=== PATIENT | male | born 1970 | race Caucasian/White ===

== ENCOUNTER 2017-07-21 05:39 | Emergency (ER) | payer OTHER ==
[~2017-07-21] VITALS: Ht 180.3 cm; Wt 106.6 kg
[~2017-07-21 05:39] MED LIST: ASPIR 8181 MG PO; BACTRIM DS TAB1 EACH PO; CELEXA10 MG PO; CEPHALEXIN 500500 M3 PO; CHANTIX1 MG PO; FLEXERIL PO; GABAPENTIN 100100 MG; HYDROCODONE-AP1 EAC6 PO; HYDROCODONE-APA1 TA1 PO; IBUPROFEN 600600 M1 PO; IBUPROFEN 800800 M1 PO; LIPITOR 20 MG T20 M1 PO; LISINOPRIL10 MG PO; NEURONTIN 300300 M1 PO; NORCO 5-325 TA1 EACH PO; NORTRIPTYLINE H10 M1 PO; OXYCODONE-APAP1 EAC4; PERCOCET 10-321 EACH PO; PERCOCET 7.5-31 EACH PO; PERCOCET PO; PRISTIQ50 MG PO; ROBAXIN500 MG PO; ROXICODONE5 M2 PO; TYLENOL EXTRA500 MG PO
[2017-07-21] MEDS ORDERED: HYDROCODONE-AP1 EAC6 PO (05:56)
[2017-07-21 06:07] LABS: ABSOLUTE BASOPHILS 0.1 thou/uL (0.0-0.2); ABSOLUTE EOSINOPHILS 0.2 thou/uL (0.0-0.7); ABSOLUTE MONOCYTES 0.7 thou/uL (0.0-1.2); ABSOLUTE NEUTROPHILS 5.1 thou/uL (1.6-8.1); BASOPHILS 0.6 %; EOSINOPHILS 2.4 %; HEMATOCRIT 43.8 % (42.0-52.0); LYMPHOCYTES 33.5 %; MCH 30.9 pg (26.0-34.0); MCHC 34.1 g/dL (28.0-37.0); MCV 90.4 fL (80.0-100.0); MONOCYTES 7.4 %; MPV 6.9 fl. (7.2-11.1); NUCLEATED RBCS 0 /100WBC; PLATELET COUNT* 235 thou/uL (150-400); POLYS 56.1 %; RBC 4.85 mil/uL (4.50-6.00)
[2017-07-21 06:14] LABS: CREATININE 0.9 mg/dL (0.6-1.3); POTASSIUM 3.7 mmol/L (3.5-5.1)
[2017-07-21 06:19] LABS: ALBUMIN 4.1 g/dL (3.4-5.0); TOTAL BILIRUBIN 0.4 mg/dL (<0.1-1.0); TOTAL PROTEIN 7.3 g/dL (6.4-8.2)
[2017-07-21] MEDS ORDERED: PERCOCET 5-3251 EACH PO (07:52)
[2017-07-21] MEDS ORDERED: ZOFRAN4 MG PO (07:52)
[2017-07-21 07:54] VITALS: BP 151/85
== END 2017-07-21 08:00 | disposition home or self-care (01) ==
LOC: M.ERS 05:39
PROVIDERS: Emergency Medicine Emergency Medical Services
DX: S70.01XA Contusion of right hip, initial encounter (principal); M25.511 Pain in right shoulder; F32.9 Major depressive disorder, single episode, unspecified; F17.210 Nicotine dependence, cigarettes, uncomplicated; Z86.73 Personal history of transient ischemic attack (TIA), and cerebral infarction without residual deficits; W18.39XA Other fall on same level, initial encounter; Y93.89 Activity, other specified; Y92.89 Other specified places as the place of occurrence of the external cause; Y99.8 Other external cause status

== ENCOUNTER 2018-03-10 06:02 | Emergency (ER) | payer OTHER ==
[~2018-03-10] VITALS: Ht 180.3 cm; Wt 103.4 kg
[~2018-03-10 06:02] MED LIST changes: +PERCOCET 5-3251 EACH PO; +ZOFRAN4 MG PO
[2018-03-10 06:32] LABS: ABSOLUTE BASOPHILS 0.1 thou/uL (0.0-0.2); ABSOLUTE EOSINOPHILS 0.3 thou/uL (0.0-0.7); ABSOLUTE LYMPHOCYTES 4.6 thou/uL (0.8-5.3); ABSOLUTE MONOCYTES 0.9 thou/uL (0.0-1.2); ABSOLUTE NEUTROPHILS 4.1 thou/uL (1.6-8.1); BASOPHILS 0.8 %; EOSINOPHILS 3.1 %; HEMATOCRIT 45.5 % (42.0-52.0); HEMOGLOBIN 15.6 gm/dL (14.0-18.0); LYMPHOCYTES 46.3 %; MCH 30.9 pg (26.0-34.0); MCHC 34.2 g/dL (28.0-37.0); MCV 90.2 fL (80.0-100.0); MONOCYTES 8.6 %; MPV 7.1 fl. (7.2-11.1); NUCLEATED RBCS 0 /100WBC; PLATELET COUNT* 250 thou/uL (150-400); POLYS 41.2 %; RBC 5.04 mil/uL (4.50-6.00); RDW-CV 13.3 % (10.5-14.5)
[2018-03-10 06:37] LABS: URINE BILIRUBIN NEGATIVE (Negative); URINE BLOOD TRACE (Negative); URINE CLARITY CLEAR; URINE COLOR YELLOW; URINE GLUCOSE-RANDOM NEGATIVE (Negative); URINE KETONES NEGATIVE (Negative); URINE LEUKOCYTES-REFLEX NEGATIVE (Negative); URINE NITRITE-REFLEX NEGATIVE (Negative); URINE PROTEIN TRACE (Negative); URINE SPECIFIC GRAVITY >= 1.030 (1.005-1.030)
[2018-03-10 06:38] LABS: ANION GAP 10 mmol/L (7-16); BUN 17 mg/dL (7-18); CALCIUM 8.4 mg/dL (8.5-10.1); CHLORIDE 104 mmol/L (98-107); CO2 25 mmol/L (21-32); CREATININE 1.1 mg/dL (0.6-1.3); GLUCOSE 130 mg/dL (70-99); POTASSIUM 3.6 mmol/L (3.5-5.1); SODIUM 139 mmol/L (136-145)
[2018-03-10 06:44] LABS: ALBUMIN 4.3 g/dL (3.4-5.0); ALKALINE PHOSPHATASE 76 U/L (46-116); LIPASE 186 U/L (73-393); SGOT 18 U/L (15-37); SGPT 29 U/L (30-65); TOTAL BILIRUBIN 0.5 mg/dL (<0.1-1.0); TOTAL PROTEIN 7.7 g/dL (6.4-8.2); TROPONIN-I LEVEL <0.06 ng/mL (<0.06)
[2018-03-10] MEDS ORDERED: BENTYL 20 MG TA20 M1 PO (10:46)
[2018-03-10] MEDS ORDERED: NORFLEX100 MG PO (10:46)
[2018-03-10 12:12] VITALS: BP 118/76
--- NOTE | 2018-03-11 12:51 | EKG ---
[place] [address] ELECTROCARDIOGRAM REPORT Name: NIRAJSURESH Canela Room: [facility]#: [id number] Admission: 03/10/18 Attend Phys: Discharge: 03/10/18 Date of : 66 Report #: [id number] THIS REPORT FOR: //name// [facility] ED Test Date: 2018-03-10 Test Time: 06:15:30 Pat Name: SURESH HEALY Department: Room: Gender: M Overhauler Helper: KATARZYNA : 1970 Requested By: Eliazar Pulliam Order Number: [id number] MD: Suresh Mcclellan Measurements Intervals [place] Rate: 111 P: 69 PA: 129 QRS: -6 QRSD: 135 T: 17 QT: 335 QTc: 455 Interpretive Statements Sinus tachycardia Nonspecific intraventricular conduction delay Artifact in lead(s) II,III,aVF,V3,V4,V5,V6 Electronically Signed On 03-11-2018 12:51:40 CDT by Suresh Mcclellan [email or web address] <ELECTRONICALLY SIGNED> By: Suresh Mcclellan MD, LOCATED WITHIN [facility] 03/11/18 1251 4 4 Suresh Mcclellan MD, FACC /EPI
[2018-03-11] MEDS ORDERED: ATIVAN1 MG PO (18:17)
== END 2018-03-10 12:13 | disposition home or self-care (01) ==
LOC: M.ERS 06:02
PROVIDERS: Family Medicine
DX: S30.1XXA Contusion of abdominal wall, initial encounter (principal); F32.9 Major depressive disorder, single episode, unspecified; F17.210 Nicotine dependence, cigarettes, uncomplicated; Z98.890 Other specified postprocedural states; Z90.5 Acquired absence of kidney; W22.8XXA Striking against or struck by other objects, initial encounter; Y93.89 Activity, other specified; Y92.89 Other specified places as the place of occurrence of the external cause; Y99.8 Other external cause status

== ENCOUNTER 2018-03-11 16:01 | Emergency (ER) | payer OTHER ==
[~2018-03-11] VITALS: Ht 180.3 cm; Wt 103.4 kg
[~2018-03-11 16:01] MED LIST changes: +BENTYL 20 MG TA20 M1 PO; +NORFLEX100 MG PO
[2018-03-11 16:22] LABS: ABSOLUTE BASOPHILS 0.1 thou/uL (0.0-0.2); ABSOLUTE EOSINOPHILS 0.1 thou/uL (0.0-0.7); ABSOLUTE LYMPHOCYTES 2.6 thou/uL (0.8-5.3); ABSOLUTE MONOCYTES 0.4 thou/uL (0.0-1.2); ABSOLUTE NEUTROPHILS 3.9 thou/uL (1.6-8.1); BASOPHILS 1.1 %; HEMATOCRIT 46.9 % (42.0-52.0); HEMOGLOBIN 15.8 gm/dL (14.0-18.0); LYMPHOCYTES 36.5 %; MCH 30.3 pg (26.0-34.0); MCHC 33.7 g/dL (28.0-37.0); MCV 89.9 fL (80.0-100.0); MONOCYTES 5.3 %; NUCLEATED RBCS 0 /100WBC; PLATELET COUNT* 228 thou/uL (150-400); POLYS 55.1 %; RBC 5.21 mil/uL (4.50-6.00); RDW-CV 13.7 % (10.5-14.5); WBC 7.1 thou/uL (4.0-11.0)
[2018-03-11 16:30] LABS: CALCIUM 8.6 mg/dL (8.5-10.1); CREATININE 0.9 mg/dL (0.6-1.3); POTASSIUM 4.2 mmol/L (3.5-5.1)
[2018-03-11 16:35] LABS: ALBUMIN 4.1 g/dL (3.4-5.0); TOTAL PROTEIN 7.6 g/dL (6.4-8.2)
[2018-03-11] MEDS ORDERED: ATIVAN1 MG PO (18:17)
[2018-03-11 18:29] VITALS: BP 131/72
--- NOTE | 2018-03-12 13:55 | EKG ---
[place] [address] ELECTROCARDIOGRAM REPORT Name: SURESH HEALY [place] Room: [facility]#: [id number] Admission: 03/11/18 Attend Phys: Discharge: 03/11/18 Date of : 66 Report #: [id number] THIS REPORT FOR: //name// [facility] ED Test Date: 2018-03-11 Test Time: 17:19:47 Pat Name: SURESH HEALY Department: Room: Gender: M Advertising Supervisor: DANIEL : 1970 Requested By: Sonia Caraballo Order Number: [id number] MD: Suresh Mcclellan Measurements Intervals [place] Rate: 83 P: 49 RI: 145 QRS: 1 QRSD: 92 T: 16 QT: 376 QTc: 442 Interpretive Statements Sinus rhythm Low voltage, precordial leads Compared to ECG 03/10/2018 06:15:30 Low QRS voltage now present Sinus tachycardia no longer present Intraventricular conduction delay no longer present Electronically Signed On 03-12-2018 13:55:13 CDT by Suresh Mcclellan [email or web address] <ELECTRONICALLY SIGNED> By: Suresh Mcclellan MD, [facility] 03/12/18 1355 1719 1719 Suresh Mcclellan MD, [facility] /EPI
== END 2018-03-11 18:30 | disposition home or self-care (01) ==
LOC: M.ERS 16:01
PROVIDERS: Personal Emergency Response Attendant
DX: S30.1XXA Contusion of abdominal wall, initial encounter (principal); K58.9 Irritable bowel syndrome, unspecified; F32.9 Major depressive disorder, single episode, unspecified; F17.210 Nicotine dependence, cigarettes, uncomplicated; Z86.73 Personal history of transient ischemic attack (TIA), and cerebral infarction without residual deficits; Z90.5 Acquired absence of kidney; W22.8XXA Striking against or struck by other objects, initial encounter; Y93.89 Activity, other specified; Y92.89 Other specified places as the place of occurrence of the external cause; Y99.8 Other external cause status

== ENCOUNTER 2018-04-30 18:57 | Inpatient (IN) | payer OTHER ==
[~2018-04-30] VITALS: Ht 177.8 cm; Wt 101.6 kg
[~2018-04-30 18:57] MED LIST changes: +ATIVAN1 MG PO
[2018-04-30 19:00] VITALS: BP 204/97
[2018-04-30] MEDS ORDERED: ATORVASTATIN CA40 MG PO (19:08)
[2018-04-30] MEDS ORDERED: PRINIVIL10 MG PO (19:08)
[2018-04-30 19:23] LABS: ABSOLUTE BASOPHILS 0.1 thou/uL (0.0-0.2); ABSOLUTE EOSINOPHILS 0.1 thou/uL (0.0-0.7); ABSOLUTE LYMPHOCYTES 1.9 thou/uL (0.8-5.3); ABSOLUTE MONOCYTES 0.5 thou/uL (0.0-1.2); ABSOLUTE NEUTROPHILS 6.1 thou/uL (1.6-8.1); BASOPHILS 0.7 %; EOSINOPHILS 1.3 %; HEMATOCRIT 42.6 % (42.0-52.0); HEMOGLOBIN 14.3 gm/dL (14.0-18.0); MCH 30.5 pg (26.0-34.0); MCHC 33.5 g/dL (28.0-37.0); MCV 90.8 fL (80.0-100.0); NUCLEATED RBCS 0 /100WBC; PLATELET COUNT* 203 thou/uL (150-400); RBC 4.68 mil/uL (4.50-6.00); RDW-CV 13.6 % (10.5-14.5); WBC 8.8 thou/uL (4.0-11.0)
[2018-04-30 19:34] LABS: ANION GAP 8 mmol/L (7-16); BUN 15 mg/dL (7-18); CALCIUM 8.4 mg/dL (8.5-10.1); CHLORIDE 105 mmol/L (98-107); CO2 26 mmol/L (21-32); CREATININE 1.1 mg/dL (0.6-1.3); GLUCOSE 161 mg/dL (70-99); POTASSIUM 3.7 mmol/L (3.5-5.1); SODIUM 139 mmol/L (136-145)
[2018-04-30 19:49] LABS: ALBUMIN 3.7 g/dL (3.4-5.0); ALKALINE PHOSPHATASE 66 U/L (46-116); CK-MB MASS 0.8 ng/mL (<0.5-3.6); SGOT 14 U/L (15-37); SGPT 24 U/L (30-65); TOTAL BILIRUBIN 0.5 mg/dL (<0.1-1.0); TOTAL PROTEIN 6.7 g/dL (6.4-8.2); TROPONIN-I LEVEL <0.06 ng/mL (<0.06)
[2018-04-30 20:30] LABS: URINE BILIRUBIN NEGATIVE (Negative); URINE BLOOD NEGATIVE (Negative); URINE CLARITY CLEAR; URINE COLOR DARK YELLOW; URINE GLUCOSE-RANDOM 1+ (Negative); URINE KETONES TRACE (Negative); URINE LEUKOCYTES-REFLEX NEGATIVE (Negative); URINE NITRITE-REFLEX NEGATIVE (Negative); URINE PROTEIN TRACE (Negative); URINE SPECIFIC GRAVITY >= 1.030 (1.005-1.030); URINE UROBILINOGEN 0.2 E.U./dl (0.2-1.0)
[2018-04-30 21:58] LABS: TROPONIN-I LEVEL <0.06 ng/mL (<0.06)
[2018-04-30 22:20] VITALS: BP 179/91
[2018-04-30 22:31] LABS: AMP/METHAMP Negative (Negative); BARBITURATES Negative (Negative); BENZODIAZEPINES Negative (Negative); COCAINE Negative (Negative); METHADONE Negative (Negative); OPIATES POSITIVE (Negative); PCP Negative (Negative); THC Negative (Negative)
[2018-04-30 22:40] VITALS: BP 181/99
[2018-05-01] VITALS (7 sets, daily range): BP systolic 115–188; BP diastolic 59–119
[2018-05-01 05:29] LABS: TROPONIN-I LEVEL <0.06 ng/mL (<0.06)
--- NOTE | 2018-05-01 12:36 | EKG ---
[place] [address] ELECTROCARDIOGRAM REPORT Name: NIRAJSURESH Canela Room: [address] ADM IN M.R.#: [id number] Admission: 04/30/18 Attend Phys: Pro Kendall Discharge: Date of : 66 Report #: [id number] THIS REPORT FOR: //name// [facility] ED Test Date: 2018-04-30 Test Time: 21:30:00 Pat Name: SURESH HEALY Department: Room: [facility] Gender: M Mri Technician: Greta CORTEZ : 1970 Requested By: Sonia Caraballo Order Number: [id number] MD: Edwin Mcginnis Measurements Intervals [place] Rate: 91 P: 60 KS: 155 QRS: -17 QRSD: 88 T: 27 QT: 351 QTc: 432 Interpretive Statements Sinus rhythm Borderline left axis deviation Borderline low voltage, extremity leads Abnormal R-wave progression, early transition Compared to ECG 03/11/2018 17:19:47 No significant changes Electronically Signed On 05-01-2018 12:36:29 CDT by Edwin Mcginnis [email or web address] <ELECTRONICALLY SIGNED> By: Edwin Mcginnis MD, FACC 05/01/18 1236 29 29 Edwin Mcginnis MD, FACC /EPI
--- NOTE | 2018-05-01 12:36 | EKG ---
[place] [address] ELECTROCARDIOGRAM REPORT Name: SURESH HEALY Room: [address] ADM IN ..#: [id number] Admission: 04/30/18 Attend Phys: Pro Kendall Discharge: Date of : 66 Report #: [id number] THIS REPORT FOR: //name// [facility] ED Test Date: 2018-04-30 Test Time: 19:02:08 Pat Name: SURESH HEALY Department: Room: [facility] Gender: M Paper Cup Machine Operator: Greta CORTEZ : 1970 Requested By: Sonia Caraballo Order Number: [id number] MD: Edwin Mcginnis Measurements Intervals [place] Rate: 139 P: 135 SC: 96 QRS: -33 QRSD: 84 T: 25 QT: 294 QTc: 447 Interpretive Statements Sinus or ectopic atrial tachycardia Inferior infarct, age indeterminate Artifact in lead(s) I,II,III,aVR,V1,V2,V3,V4,V5,V6 and baseline wander in lead (s) I,aVR Compared to ECG 03/11/2018 17:19:47 Myocardial infarct finding now present Sinus rhythm no longer present Electronically Signed On 05-01-2018 12:36:18 CDT by Edwin Mcginnis [email or web address] <ELECTRONICALLY SIGNED> By: Edwin Mcginnis MD, FACC 05/01/18 1236 01 01 Edwin Mcginnis MD, FAC /EPI
[2018-05-02] VITALS: BP 154/61
[2018-05-02 08:00] VITALS: BP 154/90
[2018-05-02] MEDS ORDERED: HYDROCHLOROTH12.5 M1 PO (09:00)
[2018-05-02 09:50] VITALS: BP 154/90
[2018-05-02 11:33] VITALS: BP 156/79
== END 2018-05-02 11:45 | disposition home or self-care (01) | DRG 923 ==
LOC: M.ERS 18:57 → M.2W 21:33 → M.TBA-ER 21:33 → M.2W 22:25
PROVIDERS: Personal Emergency Response Attendant; ADMIT Internal Medicine
DX: T75.4XXA Electrocution, initial encounter (principal); F32.9 Major depressive disorder, single episode, unspecified; F17.210 Nicotine dependence, cigarettes, uncomplicated; G89.29 Other chronic pain; F43.9 Reaction to severe stress, unspecified; I10 Essential (primary) hypertension; M54.9 Dorsalgia, unspecified; W85.XXXA Exposure to electric transmission lines, initial encounter; Z86.73 Personal history of transient ischemic attack (TIA), and cerebral infarction without residual deficits; Z90.5 Acquired absence of kidney; Y93.89 Activity, other specified; Y92.098 Other place in other non-institutional residence as the place of occurrence of the external cause; Y99.8 Other external cause status; Z79.891 Long term (current) use of opiate analgesic; Z79.899 Other long term (current) drug therapy

== ENCOUNTER 2018-07-21 06:23 | Emergency (ER) | payer OTHER ==
[~2018-07-21] VITALS: Ht 180.3 cm; Wt 103.4 kg
[~2018-07-21 06:23] MED LIST changes: +ATORVASTATIN CA40 MG PO; +HYDROCHLOROTH12.5 M1 PO; +PRINIVIL10 MG PO
[2018-07-21] MEDS ORDERED: PERCOCET 7.5-31 EACH (06:43)
[2018-07-21 06:44] LABS: ABSOLUTE EOSINOPHILS 0.4 thou/uL (0.0-0.7); ABSOLUTE LYMPHOCYTES 4.5 thou/uL (0.8-5.3); ABSOLUTE NEUTROPHILS 7.5 thou/uL (1.6-8.1); BASOPHILS 0.2 %; EOSINOPHILS 2.6 %; HEMOGLOBIN 15.9 gm/dL (14.0-18.0); LYMPHOCYTES 33.6 %; MCH 30.5 pg (26.0-34.0); MCHC 33.8 g/dL (28.0-37.0); MCV 90.4 fL (80.0-100.0); MONOCYTES 7.6 %; MPV 7.1 fl. (7.2-11.1); NUCLEATED RBCS 0 /100WBC; PLATELET COUNT* 274 thou/uL (150-400); RDW-CV 13.6 % (10.5-14.5); WBC 13.5 thou/uL (4.0-11.0)
[2018-07-21] MEDS ORDERED: CYMBALTA60 MG (06:46)
[2018-07-21] MEDS ORDERED: BLOOD PRESSURE (06:47)
[2018-07-21 06:51] LABS: ANION GAP 11 mmol/L (7-16); BUN 15 mg/dL (7-18); CALCIUM 9.5 mg/dL (8.5-10.1); CHLORIDE 105 mmol/L (98-107); CO2 26 mmol/L (21-32); CREATININE 1.2 mg/dL (0.6-1.3); GLUCOSE 133 mg/dL (70-99); POTASSIUM 3.9 mmol/L (3.5-5.1); SODIUM 142 mmol/L (136-145)
[2018-07-21 07:02] LABS: ALBUMIN 4.3 g/dL (3.4-5.0); ALKALINE PHOSPHATASE 77 U/L (46-116); NT-PRO BRAIN NAT PEPTIDE 16 pg/mL (<300); SGOT 21 U/L (15-37); SGPT 30 U/L (30-65); TOTAL BILIRUBIN 0.8 mg/dL (<0.1-1.0); TOTAL PROTEIN 7.9 g/dL (6.4-8.2); TROPONIN-I LEVEL <0.06 ng/mL (<0.06)
[2018-07-21 08:53] VITALS: BP 145/89
--- NOTE | 2018-07-21 15:37 | EKG ---
[place] [address] ELECTROCARDIOGRAM REPORT Name: NIRAJSURESH Canela [id number] Admission: 07/21/18 Attend Phys: Discharge: 07/21/18 Date of : 66 Report #: [id number] THIS REPORT FOR: //name// [facility] ED Test Date: 2018-07-21 Test Time: 06:51:25 Pat Name: SURESH HEALY Department: Room: Gender: M Remote Recruiter: BOBO : 1970 Requested By: Sondra Bull Order Number: [id number] : Suresh Mcclellan Measurements Intervals [place] Rate: 124 P: 27 MA: 72 QRS: -21 QRSD: 166 T: 80 QT: 308 QTc: 443 Interpretive Statements Sinus tachycardia Nonspecific intraventricular conduction delay Compared to ECG 04/30/2018 21:30:00 Intraventricular conduction delay now present Electronically Signed On 07-21-2018 15:36:57 DIRECTOR HAIR by Suresh Mcclellan [email or web address] <ELECTRONICALLY SIGNED> By: Suresh Mcclellan MD, [facility] 07/21/18 1536 0651 0651 Suresh Mcclellan MD, FACC /EPI
== END 2018-07-21 08:53 | disposition home or self-care (01) ==
LOC: M.ERS 06:23
PROVIDERS: Emergency Medicine
DX: S80.02XA Contusion of left knee, initial encounter (principal); S30.1XXA Contusion of abdominal wall, initial encounter; S20.219A Contusion of unspecified front wall of thorax, initial encounter; M54.2 Cervicalgia; F17.210 Nicotine dependence, cigarettes, uncomplicated; F32.9 Major depressive disorder, single episode, unspecified; Z86.73 Personal history of transient ischemic attack (TIA), and cerebral infarction without residual deficits; Z90.5 Acquired absence of kidney; V89.2XXA Person injured in unspecified motor-vehicle accident, traffic, initial encounter; Y92.89 Other specified places as the place of occurrence of the external cause; Y93.89 Activity, other specified; Y99.8 Other external cause status